=== PATIENT | male | born 1980 | race Hispanic/Latino ===

== ENCOUNTER 2020-04-15 10:09 | Day surgery (SDC) | payer OTHER ==
[~2020-04-15 10:09] MED LIST: Dexamethasone 20 MG/5 ML VIAL ONE; Famotidine/PF 20 mg/2ml Vial ONE; Fentanyl 100 MCG/2 ML VIAL ONE; Ketorolac Tromethamine 30 MG/ML VIAL ONE; Lidocaine 1% PF 5 ML VIAL ONE; Metoclopramide HCl 10 MG/2 ML VIAL ONE; Ondansetron PF 4 MG/2 ML Vial ONE; PROPOFOL 200 MG/20 ML VIAL ONE; Rocuronium Bromide 10 MG/ML (10ML VIAL) ONE; SUGAMMADEX SODIUM 200 MG/2 ML VIAL ONE; Succinylcholine 200 MG/10 ml SYRINGE FS ONE
[2020-04-15] MEDS ORDERED: Bupivacaine PF 0.5% 30 ML VIAL ONE (10:10)
[2020-04-15] MEDS ORDERED: Bupivacaine 0.25% HCL 30 ML VIAL ONE (10:10)
[2020-04-15] MEDS ORDERED: Lidocaine 1% w/Epinephrine 1:100K 20 ML VIAL ONE (10:10)
[2020-04-15] MEDS ORDERED: Fentanyl 100 MCG/2 ML VIAL ONE (10:11)
[2020-04-15] MEDS ORDERED: Piperacillin/Tazobactam 4.5 GM in Sodium Chloride 0.9% 100 ML IVPB SCH (10:15)
[2020-04-15] MEDS ORDERED: HYDROcodone/Acetaminophen 5/325 mg Tablet ONE (12:26)
--- NOTE | 2020-04-15 18:25 | HP ---
Job ID: [id number]
--- NOTE | 2020-04-15 21:06 | OP ---
DATE OF PROCEDURE: 04/15/2020 PREOPERATIVE DIAGNOSIS: Acute appendicitis. POSTOPERATIVE DIAGNOSIS: Acute appendicitis. PROCEDURE PERFORMED: Laparoscopic video appendectomy. ANESTHESIA: General, local 0.5% Marcaine 30 mL mixed with 1% Xylocaine with epinephrine 20 mL. INDICATIONS: The patient was seen at [facility]. History, exam, and CAT scan confirmed appendicitis. He was transferred to [facility], but OR was not available to late afternoon, thus he was transferred to [facility] for laparoscopic appendectomy. History and physical is that of [facility] location. FINDINGS AT OPERATION: Mild purulence around the appendix, sent home with Augmentin b.i.d. for 5 days. DESCRIPTION OF PROCEDURE: The patient was taken to the operating room, where under general anesthesia, abdomen was clipped of hair, prepared with ChloraPrep and draped in routine fashion. Licea catheter placed at the beginning of the procedure and removed at the end. Local anesthetic was infiltrated in the skin and subcutaneous tissue about each port sites. Infraumbilical incision was made, pneumoperitoneum to 15 mmHg was obtained with a Veress needle, replaced with a 5 port laparoscope inserted. Suprapubic incision was made and a 12 port placed. Right lateral subcostal incision was made and a 5 port placed. Appendix mobilized, acutely inflamed. There was slight purulence around it. Mesoappendix taken down with the LigaSure to the stump of the appendix. Appendiceal cecal stump divided with the Endo-FOREST blue load stapler. Cecal stump hemostasis gained with clips. Appendix placed in endobag and submitted to Pathology. Good hemostasis ensured. Irrigant and pneumoperitoneum evacuated after suprapubic fascia was approximated with 0 Vicryl GraNee needle. All skin incisions irrigated and approximated with interrupted subdermal 4-0 Monocryl and [place] glue applied. The patient tolerated the procedure well. Job ID: [id number]
--- NOTE | 2020-04-16 11:09 | OP ---
DATE OF PROCEDURE: 04/15/2020 PREOPERATIVE DIAGNOSES: Acute appendicitis. POSTOPERATIVE DIAGNOSIS: Acute appendicitis with purulence. PROCEDURES PERFORMED: Laparoscopic video appendectomy, abdominal washout. ANESTHESIA: General, local 0.5% Marcaine 30 mL mixed with 1% Xylocaine with epinephrine 20 mL. DESCRIPTION OF PROCEDURE: The patient was taken to the operating room, where under general anesthesia, abdomen was clipped of hair, prepared with ChloraPrep and draped in routine fashion. Licea catheter was placed at the beginning of the procedure and removed at the end. Infraumbilical incision made, pneumoperitoneum to 15 mmHg obtained with a Veress needle, replaced with a 5 port, video laparoscope inserted. Right lateral subcostal incision made and a 5 port placed. Suprapubic incision made and a 12 port placed. Appendix was acutely inflamed with some purulent exudate around it. The mesoappendix was taken down with the LigaSure, the stump of the appendix and Endo FOREST blue load stapler divided the cecal stump. Staple line hemostatic. His appendix was removed through the 12 port. Area was irrigated. Good hemostasis noted. Pelvis was irrigated and irrigant evacuated. Irrigant and pneumoperitoneum evacuated after suprapubic fascia approximated with 0 Vicryl UR needle. Pneumoperitoneum and irrigant evacuated. All instruments were removed, and all skin incisions were approximated with interrupted subdermal 4-0 Monocryl and [place] glue applied. The patient tolerated the procedure well. Job ID: [id number]
== END 2020-04-15 11:55 | disposition home or self-care (01) ==
LOC: SDC 10:09
PROVIDERS: ATTEND Specialist
PROC: 0DTJ4ZZ Resection of Appendix, Percutaneous Endoscopic Approach (ICD-10-PCS; principal; 2020-04-15)
DX: K35.890 Other acute appendicitis without perforation or gangrene (principal)
CPT/HCPCS: 88304; J1100; J1885; J2405; J2543; J2704; J2765; J3010; J3490; S0020; S0028

== ENCOUNTER 2023-02-11 09:34 | Outpatient (CLI) | payer OTHER | END 2023-02-11 09:35 | disposition home or self-care (01) | LOC: SCSRAD 09:34 | PROVIDERS: ATTEND Nurse Practitioner Family | DX: M25.572 Pain in left ankle and joints of left foot (principal) ==